=== PATIENT | male | born 1965 | race Caucasian/White ===

== ENCOUNTER 2021-08-16 13:40 | Inpatient (IN) | payer BC, SELFPAY ==
[2021-08-16 13:41] VITALS: BP 134/75; PULSE 86; RESP 16; TEMP 36.9; O2SAT 99; BMI 24.4
--- NOTE | 2021-08-16 14:26 | CT_ITS ---
STUDY: CT BRAIN WITHOUT CONTRAST REASON FOR EXAM: Male, 56 years old. Headaches. Newly diagnosed lung cancer. RADIATION DOSAGE (If Supplied By Facility): CTDIvol = ( 44.99 ) mGy, DLP = ( 812.98 ) mGycm TECHNIQUE: Transaxial CT imaging of the brain was performed without administration of intravenous contrast material. Individualized dose optimization techniques were used for this CT. COMPARISON: No relevant priors. FINDINGS: Normal soft tissue structures. Normal calvarium. Normal size ventricles and extra-axial spaces for the patient''s age. There is a 9 mm x 15 mm focus of decreased attenuation in the deep white matter of the left parietal lobe. Correlation with MRI or enhanced CT scan of the brain is recommended. Normal basal ganglia and thalami. Normal brainstem. Normal cerebellum. There is no intracranial hemorrhage. There are no findings of an acute ischemic infarction. Partial opacification of the right maxillary sinus. CT/Brain/Head without Contrast IMPRESSION: Partial opacification of the right maxillary sinus. Focal area of decreased attenuation in the left parietal lobe as described. Correlation with MRI versus enhanced CT scan of the brain is recommended. Electronically Signed: Joel Hudson MD at 15:16 EST , Service support ,
[2021-08-16] MEDS: 0.9% Normal Saline 1,000 ML 1000 ML IV (14:41)
[2021-08-16] MEDS: DiphenhydrAMINE 50 MG/ML Syringe 25 MG IV (14:43)
[2021-08-16] MEDS: Metoclopramide 10 MG/2 ML Vial IV (14:44)
[2021-08-16 14:49] LABS: Absolute Lymphocyte Count 1.81 X10^3/uL (0.83-4.51); Absolute Neutrophil Count 6.5 X10^3/uL (2.0-7.7); Basophil# 0.05 X10^3/uL; Basophil% 0.5 % (0-1); Eosinophil# 0.12 X10^3/uL; Eosinophils% 1.3 % (0-5); Hematocrit 40.5 % (40-54); Hemoglobin 13.1 g/dL (13.0-16.5); Lymphocyte # 1.81 X10^3/ul (0.83-4.51); Lymphocyte % 19.5 % (19-41); Mean Corp Hgb Conc 32.3 g/dL (32-36); Mean Corpuscular Hgb 29.4 pg (27.0-32.0); Monocyte# 0.74 X10^3/uL; NRBC Flagged by Analyzer 0 % (0-5); Neutrophil % 70.1 % (47-70); Platelet Count 137 K/mm3 (150-450); RBC Distribution Width CV 12.7 % (11.6-14.6); RBC Distribution Width SD 42.2 fl (35.1-43.9); Red Blood Count 4.45 M/mm3 (4.6-6.2); White Blood Count 9.3 K/mm3 (4.4-11.0)
[2021-08-16 14:58] LABS: Anion Gap 6 (5-15); BUN 23 mg/dL (7-18); BUN/Creat Ratio 21.9 RATIO (10-20); Calcium,Total 9.2 mg/dL (8.5-10.1); Chloride 107 mmol/L (98-107); Creatinine, Serum 1.05 mg/dL (0.70-1.30); EST Glomerular Filtration Rate 78 mL/min (>60); Est Glom Filt Rate - Afr Amer 95 mL/min (>60); Estimated Creatinine Clearance 88.28 ml/min; Glucose 102 mg/dL (74-106); Potassium 4.1 mmol/L (3.5-5.1); Sodium Level 140 mmol/L (136-145)
--- NOTE | 2021-08-16 15:16 | EX.ED.VIS.HA ---
HPI History of Present Illness Chief Complaint: Headache Informant: patient Onset/Context/Timing Onset: Today Context: Gradual Timing: Continuous Quality -Headache: Positive for Dull Location: Generalized Worsened by: Nothing Relieved by: Nothing Associated Symptoms/Injury Associated Symptoms: Negative for Fever, Nausea, Vomiting, Sore Throat, Sinus Pressure, Numbness, Tingling, Preceding Aura, Visual Changes, Blurred Vision, Photophobia and Visual Loss Injury - DUVAL: Negative for Direct Trauma Narrative Narrative: Patient presents with a head and that began today. Patient states that is gradually gotten worse. Patient states it is dull. Patient states that it is generalized. Patient states he has a history of lung cancer in his right upper lobe. Patient also states that he has had a stroke which has left him with speech difficulties. Patient states he had a headache prior to the diagnosis of his stroke. Patient is concerned that he may be having another stroke. Patient states nothing makes his headache worse and nothing makes it better. [facility] Medical History (Updated 08/16/21 @ 19:[address] Dale Beasley DO) CVA (cerebral vascular accident) Lung cancer Medical History no medical history no medical history Home Medications oxycodone-acetaminophen [Percocet] 1 tab PO Q4H PRN 08/16/21 [History Last Taken Unknown] rivaroxaban [Xarelto] 20 mg PO DAILY 08/16/21 [History Last Taken Unknown] Allergy/AdvReac Type Severity Reaction Status Date / Time No Known Allergies Allergy Verified 08/16/21 13:45 Surgical History no surgical history no surgical history Social History Smoking Status: Current every day smoker tobacco type: cigarettes ROS ROS ED Constitutional Constitutional ED: Denies chills or fever(s) Eyes Eyes: Denies blurry vision or change in vision ENT ENT ED: Denies rhinorrhea or sore throat Cardiovascular Cardiovascular: Denies chest pain or palpitations Respiratory/Chest Respiratory/Chest: Denies cough or dyspnea Gastrointestinal Gastrointestinal: Denies nausea or vomiting Genitourinary Genitourinary ED: Denies dysuria or hematuria Musculoskeletal Musculoskeletal: Reports neck pain; Denies back pain Integumentary Denies abscess or rash Neurologic Neurologic: Reports headache(s); Denies weakness Allergic/Immunologic Allergic/Immunologic ED: Denies mouth swelling or urticaria EXAM Physical Exam Const Vital Signs: 08/16/21 13:41 08/16/21 17:00 08/16/21 19:25 Temperature 98.4 F Temperature Source Temporal Pulse Rate 86 79 86 Respiratory Rate 16 18 18 Blood Pressure 134/75 H Blood Pressure Mean 94 Pulse Ox 99 97 99 Oxygen Delivery Method Room Air Room Air Room Air Positive well nourished and well developed General Appearance ED: well developed HEENT Reports moist mucous membranes Neck supple and no JVD Resp normal respiratory effort and clear to auscultation bilaterally Cardio regular rate, regular rhythm and no murmurs GI normal to inspection, nondistended, normoactive bowel sounds and non-tender Palpation: soft Extremity normal to inspection General Extremety ED: Negative for edema or tenderness General Extremity: Negative for edema Neuro oriented x3, CN's II-XII intact bilaterally and no sensory deficits noted Sensorium / Orientation: alert Motor Exam: strength 5/5 throughout Psych mental status grossly normal Skin no rashes or lesions noted MDM MDM MDM Narrative Medical decision making narrative: Patient was given IV fluids, Reglan, and Benadryl. CBC and basic metabolic profile were obtained and were within normal limits. CT scan of the brain was obtained. There is an area of decreased attenuation of the left parietal lobe. This was interpreted by the radiologist. Recommended correlation with MRI versus CTA. CTA of the head and neck was obtained. There is high-grade stenosis versus subtotal occlusion of the proximal inferior division of the M2 on the right. This corresponds to an area of loss of calderon-white differentiation and suspected early edema/ischemia involving the right temporal lobe and inferior parietal lobe. He recommended MRI and MRA for further evaluation. This was ordered. This is pending. Patient's NIH score remains at 0 throughout his entire emergency department stay. I discussed the case with the stroke neurologist at [facility] where he normally gets his oncology care. Case was discussed with Dr. Austin the stroke neurologist there. She will accept the patient to be transferred there for acute stroke evaluation. Patient will be transferred to the service of Dr. Issa. Patient understands and is agreeable with the plan. All questions were answered. Lab Data Attestation: I reviewed the patient's lab results. Labs: Laboratory Results - last 24 hr 08/16/21 08/16/21 14:35 14:35 WBC 9.3 RBC 4.45 L Hgb 13.1 Hct 40.5 MCV 91.0 MCH 29.4 MCHC 32.3 RDW Std Deviation 42.2 RDW Coeff of Emir 12.7 Plt Count 137 L MPV 11.0 Immature Gran % (Auto) 0.600 Neut % (Auto) 70.1 H Lymph % (Auto) 19.5 [place] % (Auto) 8.0 Eos % (Auto) 1.3 Baso % (Auto) 0.5 Absolute Neuts (auto) 6.5 Absolute Lymphs (auto) 1.81 Nucleated RBC % 0 Sodium 140 Potassium 4.1 Chloride 107 Carbon Dioxide 27.0 Anion Gap 6 BUN 23 H Creatinine 1.05 Estim Creat Clear Calc 88.28 Est GFR (MDRD) Af Amer 95 Est GFR (MDRD) Non-Af 78 BUN/Creatinine Ratio 21.9 H Glucose 102 Calcium 9.2 Radiography Diagnostic Testing: Clinical Impression(s) from Imaging Studies Brain CT 08/16/21 14:26 IMPRESSION: Partial opacification of the right maxillary sinus. Focal area of decreased attenuation in the left parietal lobe as described. Correlation with MRI versus enhanced CT scan of the brain is recommended. Electronically Signed: Joel Hudson MD at 15:16 EST , Service support , Head/Neck CTA 08/16/21 15:30 IMPRESSION: 1. Focal short subtle high-grade stenosis versus subtotal occlusion of the proximal inferior division of M2 on the RIGHT. This corresponds to an area of loss of calderon-white differentiation and suspected early edema/ischemia involving the RIGHT temporal lobe and inferior parietal lobe. No hemorrhage noted. In the current absence of clinical symptoms corresponding to this area of parenchymal abnormality and vascular abnormality, consider follow-up evaluation with MRI to further evaluate the area of suspected parenchymal ischemia. No current evidence of hemorrhage. 2. No other intracranial evidence of stenosis occlusion or aneurysmal dilatation. Minimal scattered calcifications noted. 3. No evidence of focal stenosis occlusion or luminal irregularity involving the cervical course of the carotid and vertebral vessels to the level of skull base. 4. Extensive mediastinal and a cervical adenopathy, suspicious of metastatic disease. 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 Ramos Newsome. : The above Results were Read Back by Mateusz Liang MD to Dale Beasley DO, and understanding confirmed on 08/16/2021 17:37:52 (ET). Electronically Signed: Mateusz Liang MD at 17:42 EST Tel , Service support , ADDENDUM: 08/16/21 1749 IMPRESSION: 1. Focal short subtle high-grade stenosis versus subtotal occlusion of the proximal inferior division of M2 on the RIGHT. This corresponds to an area of loss of calderon-white differentiation and suspected early edema/ischemia involving the RIGHT temporal lobe and inferior parietal lobe. No hemorrhage noted. In the current absence of clinical symptoms corresponding to this area of parenchymal abnormality and vascular abnormality, consider follow-up evaluation with MRI to further evaluate the area of suspected parenchymal ischemia. No current evidence of hemorrhage. 2. No other intracranial evidence of stenosis occlusion or aneurysmal dilatation. Minimal scattered calcifications noted. 3. No evidence of focal stenosis occlusion or luminal irregularity involving the cervical course of the carotid and vertebral vessels to the level of skull base. 4. Extensive mediastinal and a cervical adenopathy, suspicious of metastatic disease. 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 Ramos Newsome. : The above Results were Read Back by Mateusz Liang MD to Dale Beasley DO, and understanding confirmed on 08/16/2021 17:37:52 (ET). Electronically Signed: Mateusz Liang MD at 17:42 EST Tel , Service support , Discharge Plan Triage Chief Complaint: Headache ED Provider: Dale Beasley Dx/Rx/DC Orders Clinical Impression: Acute stroke due to occlusion of right middle cerebral artery Prescriptions: No Action Xarelto 20 mg Tablet 20 mg PO DAILY RF: 0 oxycodone-acetaminophen [Percocet] 5-325 mg Tablet 1 tab PO Q4H PRN (Reason: Pain) RF: 0 Primary Care Provider: Maciel Clemens Referrals: Maciel Clemens MD [Primary Care Provider] - Disposition Disposition: Acute Care Hospital Discharge Location: [facility]
--- NOTE | 2021-08-16 15:30 | CT_ITS ---
INDICATION: headache EXAMINATION: CT BRAIN WITH CONTRAST TECHNIQUE: Noncontrast axial images were obtained of the brain. Subsequently, routine carotid CT angiogram protocol was performed without and with IV contrast. In addition, images were obtained of the [place]. NASCET criteria using the distal ICAs for comparison were used for evaluation of stenoses. 3D reconstructions were reviewed. A radiation dose optimization technique was used for this scan. IV Contrast dosage and agent: 100 mL Omnipaque 370 Radiation Dose (provided by facility) CTDIvol (21.4 ) mGy, DLP ( 755.60) mGy-cm COMPARISON: CT examination of the head on the same date. FINDINGS: --CT BRAIN: BRAIN PARENCHYMA: 1. The cerebral parenchyma, ventricular system and gyral pattern have normal configuration. There are subtle findings suspicious of loss of calderon-white differentiation involving the RIGHT lobe and inferior parietal lobule on the RIGHT. No hemorrhage noted. Chronic deep white matter changes are noted in the remaining hemispheric parenchyma. 2. Normal appearance the visualized cerebellum, brainstem, basilar and suprasellar cisterns. 3. Moderate to extensive maxillary sinus disease greater on the RIGHT than LEFT, ethmoid disease also noted. --CTA NECK: AORTIC ARCH AND BRANCHES: Normal anatomy, patent. RIGHT CCA: No occlusion, significant stenosis or dissection. RIGHT ICA: No occlusion, significant stenosis or dissection. LEFT CCA: No occlusion, significant stenosis or dissection. LEFT ICA: No occlusion, significant stenosis or dissection. RIGHT VERTEBRAL ARTERY: No occlusion, significant stenosis or dissection. LEFT VERTEBRAL ARTERY: No occlusion, significant stenosis or dissection. NECK SOFT TISSUES: There are bulky lymph nodes noted within the region of the root of the neck, and bulky adenopathy present within the superior mediastinum including a RIGHT paratracheal node measuring approximately 3.1 x 2.6 cm in size. A LEFT scalene node is estimated at approximately 2.2 x 2.1 cm in size. --CTA HEAD: --Anterior circulation: ICAs: Scattered calcifications noted in the cavernous carotid vessels bilaterally without stenosis or occlusion. ACAs: No significant stenosis at the visualized segments. ACOM: Present. MCAs: 1. There is normal appearance of the LEFT MCA including M1-M4 segments without stenosis or occlusion. 2. There is normal patency of the RIGHT M1. There is a short segment drop off of contrast enhancement involving the posterior M2 division (series 2: Image 448, series 603: Image 81). There is contrast extending into distal segments of the RIGHT MCA. --Posterior circulation: PCOMs: Only faint posterior commuting vessels noted bilaterally. science technicians: No significant stenosis at the visualized segments. BASILAR ARTERY: No significant stenosis. VERTEBRAL ARTERIES: No significant stenosis at the intradural/visualized segments. No evidence of intracranial aneurysm or vascular malformation. CT/CTA Head AND Neck W/ Contrast IMPRESSION: 1. Focal short subtle high-grade stenosis versus subtotal occlusion of the proximal inferior division of M2 on the RIGHT. This corresponds to an area of loss of calderon-white differentiation and suspected early edema/ischemia involving the RIGHT temporal lobe and inferior parietal lobe. No hemorrhage noted. In the current absence of clinical symptoms corresponding to this area of parenchymal abnormality and vascular abnormality, consider follow-up evaluation with MRI to further evaluate the area of suspected parenchymal ischemia. No current evidence of hemorrhage. 2. No other intracranial evidence of stenosis occlusion or aneurysmal dilatation. Minimal scattered calcifications noted. 3. No evidence of focal stenosis occlusion or luminal irregularity involving the cervical course of the carotid and vertebral vessels to the level of skull base. 4. Extensive mediastinal and a cervical adenopathy, suspicious of metastatic disease. Preliminary report called to the emergency room at 4:38 PM TEACHER VISUALLY IMPAIRED, a verbal report was communicated to Dr. Ramos Newsome. : The above Results were Read Back by Mateusz Liang MD to Dale Beasley DO, and understanding confirmed on 08/16/2021 17:37:52 (ET). Electronically Signed: Mateusz Liang MD at 17:42 EST Tel , Service support ,
[2021-08-16 17:00] VITALS: PULSE 79; RESP 18; O2SAT 97
--- NOTE | 2021-08-16 17:41 | MRI_ITS ---
STUDY: MRA OF THE HEAD WITHOUT CONTRAST REASON FOR EXAM: Male, 56 years old. Stroke TECHNIQUE: 3-D [id number] (TOF) imaging was performed with MIPs. The study was performed unenhanced. Planar and three-dimensional noncontrast imaging submitted. COMPARISON: None. FINDINGS: Normal bilateral petrous carotid arteries. Normal right cavernous carotid artery with a normal supraclinoid bifurcation. Normal left cavernous carotid artery with a normal supraclinoid bifurcation. Normal right A1 segments of the anterior cerebral artery. Normal left A1 segments of the anterior cerebral artery. Normal intact anterior communicating artery (ACOM). Normal bilateral A2 segments of the anterior cerebral arteries. There is normal caliber of the RIGHT M1. Normal appearance at the bifurcation. There is a focal area of stenosis versus subtotal occlusion of the inferior M2 MCA division (series 2: Image 116) corresponding to the recent CTA findings. The remaining mid to distal M2 through M4 segments show normal flow. Normal left M1 and M2 segments of the middle cerebral arteries, with a normal M1 bifurcation. Normal right posterior communicating artery (PCOM). Normal left posterior communicating artery (PCOM). Normal bilateral vertebral arteries. Normal basilar artery with a normal basilar bifurcation. The visualized bilateral superior cerebellar (SCA) arteries are normal. Normal bilateral P1, P2 and visualized P3 segments of the posterior cerebral arteries. There is no demonstrated aneurysm of the [place]. MRI/MRA Head ONLY without Contrast IMPRESSION: 1. Redemonstration of a focal area of high-grade stenosis versus subtotal occlusion involving the proximal inferior M2 division of the RIGHT MCA. This corresponds to the area of abnormality on recent CTA examination, and is associated with the vascular distribution of the area of acute ischemic changes in the RIGHT temporal and parietal lobes. 2. No other evidence of stenosis, occlusion, or aneurysmal dilatation involving the [place]. Electronically Signed: Mateusz Liang MD at 19:58 EST Tel , Service support ,
--- NOTE | 2021-08-16 17:41 | MRI_ITS ---
STUDY: MRI BRAIN WITH AND WITHOUT CONTRAST REASON FOR EXAM: Male, 56 years old. Stroke TECHNIQUE: Standardized multiplanar fat and water weighted pulse sequences were obtained. IV 15ml dotarem was administered for the contrast portion of the examination. MRI examination brain obtained with standard protocol including multiplanar multiecho pre and postcontrast imaging. COMPARISON: CT and CTA examination of the same date FINDINGS: HEMISPHERES, CEREBELLUM AND BRAINSTEM: 1. The cerebral parenchyma, ventricular system and gyral pattern have normal configuration. Scattered chronic microvascular deep white matter changes are present. 2. Current examination is remarkable for moderate-sized area of fluid restriction and matched 80 cc abnormality along lateral periphery of the RIGHT temporal and inferior parietal lobes, mild extension into the adjacent lateral convexity of the RIGHT occipital lobe. No hemorrhage noted. Findings are consistent with acute ischemia/developing infarct. 3. There is focal area of elevated T2 signal and FLAIR signal along the lateral convexity of the LEFT frontal lobe, involving the LEFT inferior frontal gyrus. There is a mild diffusion hyperintensity, however no associated ADC abnormality, and findings consistent with T2 shine through. 4. There are several areas of abnormal contrast enhancement. There is leptomeningeal or cortical enhancement involving the RIGHT inferior frontal gyrus, particularly opercular region extending into the anterior insula (series 10: Image 14). Additional subtle area of similar leptomeningeal enhancement along the lateral convexity of the RIGHT frontal lobe at the level of the RIGHT inferior frontal sulcus (series 10: Image 16). No associated edema or hemosiderin deposition noted. No vasogenic edema noted.. 5. The cerebellum, brainstem, basilar and suprasellar cisterns have normal appearance. No Chiari malformation. PITUITARY: Infundibulum and pituitary have normal configuration. Midline structures appear normal. CSF SPACES: Appropriate for age. No hydrocephalus. Basal cisterns are patent. VESSELS: 1. There are normal flow voids noted in the great vessels at the skull base ORBITS AND PARANASAL SINUSES: 1. Both globes, extraocular muscles, optic nerves and retrobulbar fat appear unremarkable. 2. Maxillary sinus disease is noted greater on the RIGHT than LEFT, additional bilateral mastoid air cell disease greater on the RIGHT than LEFT. BONY ELEMENTS: No destructive bony process noted however subtle areas of T2 signal hyperintensity within the marrow of the calvarium with associated subtle contrast enhancement noted... SCALP AND SOFT TISSUES: Normal appearance of the soft tissues of the scalp and the visualized face OTHER: None MRI/Brain W/WO Contrast IMPRESSION: 1. Moderate-sized area of fluid restriction/acute ischemic change involving the RIGHT temporal lobe and inferior parietal lobule on the RIGHT with mild extension into the anterior portion of the RIGHT occipital lobe. Pattern is consistent with recent CT findings of a nonhemorrhagic RIGHT temporal parietal infarct. No associated hemosiderin deposition or hemorrhage. No associated contrast enhancement. 2. 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 3. 2 focal areas of leptomeningeal contrast enhancement involving the RIGHT frontal lobe as detailed. No associated mass effect or vasogenic edema. Differential considerations include sequelae of mild leptomeningeal disease including inflammatory changes, however given the patient''s history, early LEFT meningeal metastatic disease is a consideration. No mass effect noted. 4. Subtle areas of T2 signal abnormality within the cranial vault with a subtle contrast enhancement noted. No jenn destructive bony processes identified however. 5. Sinus disease. Electronically Signed: Mateusz Liang MD at 19:48 EST Tel , Service support ,
[2021-08-16] MEDS: LORazepam 2 MG/ML Syringe 1 MG IV (17:59)
[2021-08-16 19:25] VITALS: PULSE 86; RESP 18; O2SAT 99
[2021-08-16 21:49] VITALS: BP 124/64; PULSE 83; RESP 18; O2SAT 99
[2021-08-16 23:21] VITALS: PULSE 72; RESP 18; O2SAT 99
[2021-08-17] VITALS (10 sets, daily range): BP systolic 117–123; BP diastolic 57–94; PULSE 73–100; RESP 16–20; TEMP 36.6–37; O2SAT 93–97; BMI 24.0
--- NOTE | 2021-08-17 07:18 | NURSING ---
CALLED [facility] TRANSFER LINE. NO BEDS, ERS ARE PACKED
--- NOTE | 2021-08-17 08:37 | NURSING ---
PCU OBS [place] CVA
[2021-08-17] MEDS: Rivaroxaban 20 MG Tablet PO (08:39)
--- NOTE | 2021-08-17 08:42 | ECHOD_ITS ---
Reason For Study: TIA/CVA Procedure This was a 2D Doppler, Color Flow transthoracic echocardiogram. The study was technically difficult. Exam performed portable in patient room. Left Ventricle Normal LV size. Left ventricular systolic function is normal. The estimated ejection fraction is 65 %. No evidence for diastolic dysfunction. No regional wall motion abnormalities noted. Right Ventricle Normal RV size. Normal systolic function. Atria The left atrium is mildly enlarged. Normal right atrium. No doppler evidence for ASD. Bubble contrast study negative for right to left interatrial shunt. Mitral Valve There is no mitral annular calcification. Normal mitral valve. Trivial mitral valve insufficiency. Tricuspid Valve Normal tricuspid valve. Mild eccentric tricuspid valve insufficiency. Unable to estimate RV systolic pressure/pulmonary artery pressure due to technically difficult study. Aortic Valve Trisinus/trileaflet aortic valve. Normal aortic valve. Mild (1+) aortic valve insufficiency. Pulmonic Valve Normal pulmonic valve. Trivial eccentric pulmonic valve insufficiency. Great Vessels Mildly dilated aortic root. Pericardium/Pleural No pericardial effusion. Medication Performed a rapid injection of agitated mix of 9 cc saline and 1cc air to assess for atrial septal defect. MMode/2D Measurements & Calculations LVIDd: 5.4 cm IVSd: 0.96 cm LVOT diam: 2.3 cm LVIDs: 3.6 cm LVPWd: 0.94 cm RVDd: 3.4 cm FS: 32.5 % LVOT area: 4.1 cm2 Ao root diam: 4.2 cm LAV(MOD-bp): 56.8 ml LA A4 area: 19.1 cm2 LAV(MOD-bp) Indexed: 27.9 ml/m2 LAV(MOD-sp2): 57.8 ml LAV(MOD-sp4): 52.7 ml LA dimension(2D): 4.1 cm RA A4 area: 13.8 cm2 Time Measurements MV dec time: 0.18 sec Doppler Measurements & Calculations MV E max gilbert: 86.5 cm/sec Lat Peak E' Gilbert: 12.9 cm/sec Med Peak E' Gilbert: 14.5 cm/sec MV A max gilbert: 54.3 cm/sec E/E' lat: 6.7 E/E' med: 5.9 MV E/A: 1.6 Ao V2 max: 155.2 cm/sec AI max gilbert: 376.5 cm/sec LV V1 max: 133.8 cm/sec Ao max P.6 mmHg AI max P.8 mmHg LV V1 max P.2 mmHg Ao V2 mean: 98.5 cm/sec AI dec slope: 405.6 cm/sec2 LV V1 mean P.1 mmHg Ao mean P.4 mmHg AI P1/2t: 271.9 msec LV V1 mean: 82.3 cm/sec Ao V2 VTI: 30.8 cm LV V1 VTI: 27.1 cm TONI(I,D): 3.6 cm2 TONI(V,D): 3.6 cm2 MR max gilbert: 494.8 cm/sec SV(LVOT): 111.8 ml PA V2 max: 71.6 cm/sec MR max P.9 mmHg ECHO/Echo Complete Interpretation Summary The study was technically difficult. Left ventricular systolic function is normal. The estimated ejection fraction is 65 %. The left atrium is mildly enlarged. Trivial mitral valve insufficiency. Mild eccentric tricuspid valve insufficiency. Mild (1+) aortic valve insufficiency. Trivial eccentric pulmonic valve insufficiency. Mildly dilated aortic root. Unable to estimate RV systolic pressure/pulmonary artery pressure due to techni rosa difficult study. No evidence for diastolic dysfunction. Bubble contrast study negative for right to left interatrial shunt. Ordering Physician: Jose Dewitt Referring Physician: Maciel Clemens Performed By: Barbra Grissom, WHITNEY, RVT
--- NOTE | 2021-08-17 08:45 | ED.RN ---
PT NOTIFIED HE WILL BE ADMITTED TO [facility] WHILE WAITING FOR A BED AT [facility]. PT C/O HEADACHE. DR BLAKE NOTIFIED. MEDICATIONS TO BE ORDERED
[2021-08-17] MEDS: DiphenhydrAMINE 50 MG/ML Syringe 25 MG IV (08:56)
[2021-08-17] MEDS: LORazepam 2 MG/ML Syringe 1 MG IV (08:57)
[2021-08-17] MEDS: Metoclopramide 10 MG/2 ML Vial IV (09:00)
--- NOTE | 2021-08-17 09:47 | TELEMED_ITS ---
[facility] Telemed has confirmed receipt of a request for visit. This document confirms receipt of the order initiating the consult. To find the results of the consultation, please view the patient's reports for the scanned Telemed Consult.
--- NOTE | 2021-08-17 09:48 | NURSING ---
Echo in progress
--- NOTE | 2021-08-17 11:05 | PCM.HP.STD ---
Documented by User: JA Reyes 08/17/21 11:17 HPI - General General Date of Admission: 08/17/21 Date of Service: 08/17/21 Chief Complaint: Headache HPI Narrative ART VEGA, is a 56 M who presents with complaints of a headache that began yesterday and has gradually gotten worse over the day. Patient qualifies as generalized and dull. Patient reports a medical history of right upper lobe lung cancer and a history of stroke. Patient currently on Xarelto only. Patient states that prior to his past stroke he had a headache as well. [facility] Medical History CVA (cerebral vascular accident) Lung cancer Medical History no medical history Home Medications oxycodone-acetaminophen [Percocet] 1 tab PO Q4H PRN 08/16/21 [History Last Taken Unknown] rivaroxaban [Xarelto] 20 mg PO DAILY 08/16/21 [History Last Taken Unknown] Allergy/AdvReac Type Severity Reaction Status Date / Time No Known Allergies Allergy Verified 08/16/21 13:45 Family History no significant family his no significant family history Surgical History no surgical history no surgical history Social History Smoking Status: Current every day smoker tobacco type: cigarettes ROS Constitutional Constitutional: Denies anorexia, chills, fatigue, fever(s), malaise or weakness Eyes Eyes: Denies blurry vision or change in vision ENT HEENT: Reports headache(s); Denies abnormal hearing Cardiovascular Cardiovascular: Denies chest pain, claudication, orthopnea, palpitations or syncope Respiratory/Chest Respiratory/Chest: Denies cough, shortness of breath at rest, shortness of breath with exertion or wheezing Gastrointestinal Gastrointestinal: Denies abdominal pain, constipation, diarrhea, nausea or vomiting Genitourinary Genitourinary: Denies dysuria Musculoskeletal Musculoskeletal: Denies back pain, extremity pain, joint pain, joint stiffness or joint swelling Integumentary Integumentary: Denies dry skin or jaundice Neurologic Neurologic: Reports abnormal speech and headache(s); Denies abnormal gait, confusion, dizziness or focal weakness Psychiatric Psychiatric: Denies anxiety or depression Endocrine Endocrinology: Denies change in body appearance Hematologic/Lymphatic Hematologic/Lymphatic: Denies anemia, easy bleeding or easy bruising Vital Signs Vital Signs Vital Signs: 08/16/21 13:41 08/16/21 17:00 08/16/21 19:25 Temperature 98.4 F Temperature Source Temporal Pulse Rate 86 79 86 Respiratory Rate 16 18 18 Blood Pressure 134/75 H Blood Pressure Mean 94 Blood Pressure Source Blood Pressure Position Blood Pressure Location Pulse Ox 99 97 99 Oxygen Delivery Method Room Air Room Air Room Air 08/16/21 21:49 08/16/21 23:21 08/17/21 01:12 Temperature Temperature Source Pulse Rate 83 72 Respiratory Rate 18 18 18 Blood Pressure 124/64 H Blood Pressure Mean 84 Blood Pressure Source Blood Pressure Position Blood Pressure Location Pulse Ox 99 99 Oxygen Delivery Method Room Air Room Air 08/17/21 03:37 08/17/21 06:05 08/17/21 08:44 Temperature 97.8 F Temperature Source Oral Pulse Rate 100 Respiratory Rate 18 16 20 H Blood Pressure 123/80 H Blood Pressure Mean 94 Blood Pressure Source Blood Pressure Position Blood Pressure Location Pulse Ox 96 97 Oxygen Delivery Method Room Air Room Air 08/17/21 09:40 Temperature 98.6 F Temperature Source Temporal Pulse Rate 73 Respiratory Rate 16 Blood Pressure 119/60 Blood Pressure Mean 79 Blood Pressure Source Monitor Blood Pressure Position Semi-Fowlers Blood Pressure Location Left Arm Pulse Ox 93 Oxygen Delivery Method Room Air Weight Weight: 177 lb 11.081 oz Body Mass Index (BMI) 24.0 Physical Exam Const alert, oriented x3 and no apparent distress General Appearance: cooperative HEENT normocephalic and head/scalp atraumatic Eyes conjunctivae normal and no scleral icterus Neck supple and no JVD General: trachea midline Resp normal respiratory effort, normal air movement and clear to auscultation bilaterally Cardio regular rate, regular rhythm, S1 normal heart sound, S2 normal heart sound and peripheral pulses 2+ throughout GI normal to inspection, nondistended, normoactive bowel sounds, soft to palpation and non-tender Extremity normal capillary refill and no clubbing, cyanosis or edema General Extremity: no tenderness to palpation of joints or extremities Skin General Skin Exam: no breakdown and turgor normal Lesions: no lesions Rashes: no rashes Neuro moves all extremities, no focal motor deficits and no sensory deficits noted Speech: speech normal and speech abnormal Details: Positive for slurred (From previous stroke) Gait (Neuro): normal gait Motor Exam: Negative for general weakness Psych thought process normal, cooperative and affect normal Appearance: appropriate Results Lab / Micro Data Result Diagrams: 08/16/21 14:35 08/16/21 14:35 Labs: Laboratory Results - last 24 hr 08/16/21 14:35: WBC 9.3, RBC 4.45 L, Hgb 13.1, Hct 40.5, MCV 91.0, MCH 29.4, MCHC 32.3, RDW Std Deviation 42.2, RDW Coeff of Emir 12.7, Plt Count 137 L, MPV 11.0, Immature Gran % (Auto) 0.600, Neut % (Auto) 70.1 H, Lymph % (Auto) 19.5, [place] % (Auto) 8.0, Eos % (Auto) 1.3, Baso % (Auto) 0.5, Absolute Neuts (auto) 6.5, Absolute Lymphs (auto) 1.81, Nucleated RBC % 0 08/16/21 14:35: Sodium 140, Potassium 4.1, Chloride 107, Carbon Dioxide 27.0, Anion Gap 6, BUN 23 H, Creatinine 1.05, Estim Creat Clear Calc 88.28, Est GFR (MDRD) Af Amer 95, Est GFR (MDRD) Non-Af 78, BUN/Creatinine Ratio 21.9 H, Glucose 102, Calcium 9.2 Micro: Microbiology 08/16/21 19:05 Nasal Secretion SARS-CoV-2 Antigen (Rapid) - Final Radiology Impression Brain CT 08/16/21 14:26 IMPRESSION: Partial opacification of the right maxillary sinus. Focal area of decreased attenuation in the left parietal lobe as described. Correlation with MRI versus enhanced CT scan of the brain is recommended. Electronically Signed: Joel Hudson MD at 15:16 EST , Service support , Head/Neck CTA 08/16/21 15:30 IMPRESSION: 1. Focal short subtle high-grade stenosis versus subtotal occlusion of the proximal inferior division of M2 on the RIGHT. This corresponds to an area of loss of calderon-white differentiation and suspected early edema/ischemia involving the RIGHT temporal lobe and inferior parietal lobe. No hemorrhage noted. In the current absence of clinical symptoms corresponding to this area of parenchymal abnormality and vascular abnormality, consider follow-up evaluation with MRI to further evaluate the area of suspected parenchymal ischemia. No current evidence of hemorrhage. 2. No other intracranial evidence of stenosis occlusion or aneurysmal dilatation. Minimal scattered calcifications noted. 3. No evidence of focal stenosis occlusion or luminal irregularity involving the cervical course of the carotid and vertebral vessels to the level of skull base. 4. Extensive mediastinal and a cervical adenopathy, suspicious of metastatic disease. Preliminary report called to the emergency room at 4:38 PM CLINIC ADMINISTRATOR, a verbal report was communicated to Dr. Ramos Newsome. : The above Results were Read Back by Mateusz Liang MD to Dale Beasley DO, and understanding confirmed on 08/16/2021 17:37:52 (ET). Electronically Signed: Mateusz Liang MD at 17:42 EST Tel , Service support , ADDENDUM: 08/16/21 1749 IMPRESSION: 1. Focal short subtle high-grade stenosis versus subtotal occlusion of the proximal inferior division of M2 on the RIGHT. This corresponds to an area of loss of calderon-white differentiation and suspected early edema/ischemia involving the RIGHT temporal lobe and inferior parietal lobe. No hemorrhage noted. In the current absence of clinical symptoms corresponding to this area of parenchymal abnormality and vascular abnormality, consider follow-up evaluation with MRI to further evaluate the area of suspected parenchymal ischemia. No current evidence of hemorrhage. 2. No other intracranial evidence of stenosis occlusion or aneurysmal dilatation. Minimal scattered calcifications noted. 3. No evidence of focal stenosis occlusion or luminal irregularity involving the cervical course of the carotid and vertebral vessels to the level of skull base. 4. Extensive mediastinal and a cervical adenopathy, suspicious of metastatic disease. Preliminary report called to the emergency room at 4:38 PM CLINIC ADMINISTRATOR, a verbal report was communicated to Dr. Ramos Newsome. : The above Results were Read Back by Mateusz Liang MD to Dale Beasley DO, and understanding confirmed on 08/16/2021 17:37:52 (ET). Electronically Signed: Mateusz Liang MD at 17:42 EST Tel , Service support , Brain MRI 08/16/21 17:41 IMPRESSION: 1. Moderate-sized area of fluid restriction/acute ischemic change involving the RIGHT temporal lobe and inferior parietal lobule on the RIGHT with mild extension into the anterior portion of the RIGHT occipital lobe. Pattern is consistent with recent CT findings of a nonhemorrhagic RIGHT temporal parietal infarct. No associated hemosiderin deposition or hemorrhage. No associated contrast enhancement. 2. 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 3. 2 focal areas of leptomeningeal contrast enhancement involving the RIGHT frontal lobe as detailed. No associated mass effect or vasogenic edema. Differential considerations include sequelae of mild leptomeningeal disease including inflammatory changes, however given the patient''s history, early LEFT meningeal metastatic disease is a consideration. No mass effect noted. 4. Subtle areas of T2 signal abnormality within the cranial vault with a subtle contrast enhancement noted. No jenn destructive bony processes identified however. 5. Sinus disease. Electronically Signed: Mateusz Liang MD at 19:48 EST Tel , Service support , Head MRA 08/16/21 17:41 IMPRESSION: 1. Redemonstration of a focal area of high-grade stenosis versus subtotal occlusion involving the proximal inferior M2 division of the RIGHT MCA. This corresponds to the area of abnormality on recent CTA examination, and is associated with the vascular distribution of the area of acute ischemic changes in the RIGHT temporal and parietal lobes. 2. No other evidence of stenosis, occlusion, or aneurysmal dilatation involving the kake of [place]. Electronically Signed: Mateusz Liang MD at 19:58 EST Tel , Service support , Assessment & Plan Assessment/Plan (1) Acute stroke due to occlusion of right middle cerebral artery: PLAN: 1. Acute right temporal parietal infarct -Admit to PCU -Consult [facility] neurology -Echocardiogram ordered -Patient initiated on atorvastatin and aspirin -Continue Xarelto -NIH stroke scale monitoring per protocol -Lipid panel pending -ST, PT, OT consulted 2. Tobacco use - Inpatient smoking cessation ordered DVT prophylaxis-chronically anticoagulated with Xarelto This patient was seen by JA Reyes under the supervision of Dr. Dewitt 13 minutes spent in clinical coordination of patient's plan of care. Documented by User: Dr. Jose Dewitt MD 08/17/21 18:20 HPI - General General Date of Admission: 08/17/21 [facility] Medical History CVA (cerebral vascular accident) Lung cancer Medical History no medical history Home Medications oxycodone-acetaminophen [Percocet] 1 tab PO Q4H PRN 08/16/21 [History Last Taken Unknown] rivaroxaban [Xarelto] 20 mg PO DAILY 08/16/21 [History Last Taken Unknown] Allergy/AdvReac Type Severity Reaction Status Date / Time No Known Allergies Allergy Verified 08/16/21 13:45 Family History no significant family his Surgical History no surgical history Social History Smoking Status: Current every day smoker tobacco type: cigarettes Results Lab / Micro Data Result Diagrams: 08/16/21 14:35 08/16/21 14:35 Charges/Coding Addendum Addendum: Dr. Dewitt: I personally reviewed the chart and examined the patient, and agree with the above findings. 56-year-old male presents to the hospital with strokelike symptoms. Slurred speech as well as loss of fluency and a headache. He was in the ER overnight pending transfer to the [facility] however this morning when the [facility] was called and did not have an estimation for a bed therefore he was admitted here. He is outside the tPA window due to both recent CVA as well as being on full dose anticoagulation. NIH per [facility] neurology was 4. He had had a stroke in June, which did present very similar to this with loss of fluency and trouble with his speech, and at that time he was found to have a spiculated lesion in his chest that was biopsied at [facility] and was found to be an adenocarcinoma. He did have a PET scan that shows uptake in his mediastinal and I believe supraclavicular lymph nodes. However they have not been able to follow-up with the oncologist at this time to get a diagnosis and staging. Repeat MRI shows a possible new stroke in the right temporal region. He does look like he has old MCA strokes in his right and left distribution. He states that he has an allergy to a statin as he had been trialed on it previously and had significant crippling leg pain therefore he refuses any statin. He was started on the Xarelto due to lower extremity DVTs however if he is having strokes in the setting of cancer then this may demonstrate a lack of effectiveness of the Xarelto therefore we will discontinue this and start him on therapeutic Lovenox. We are attempting to get him transferred to the [facility], in the meantime we are awaiting records from that institution to see what else we can do, does appear that they may have had a SILVIA done there during his previous admission therefore would not need to repeat that now. Our echo demonstrates normal valves it does appear that they got good visualization. If he has some improvement in his symptomatology tomorrow he does have an outpatient physician appointment on 08/19/2021 and he can follow-up with his oncologist as well as the [facility] neurologist later in the week if possible. Clinical time spent evaluating the patient as well as obtaining history and chart review and discussing the case with neurology: 60 minutes General: Alert, Oriented x3, Cooperative, No apparent distress HEENT: Atraumatic, PERRLA, EOMI, Normocephalic Oral: Moist Mucosa Neck: Supple, No JVD Lungs: Clear to auscultation, Normal air movement, No rhonchi, No wheeze, No rales Cardiovascular: Regular rate, Regular Rhythm, Normal S1, Normal S2, No murmurs Abdomen: Soft, Non Tender, Non-Distended, No Hepato-splenomegaly Extremities: No edema, Capillary Refill Less than 3 Seconds Skin: No rashes, No breakdown Musculoskeletal: No Tenderness to Palpation of Joints or Extremities Neurological: Mildly slurred speech and word finding issues, NIH of 4, Motor Exam 5/5 strength throughout, Sensory exam intact to light touch and pain Psych/Mental Status: Flat affect, Appropriate Visit Charges Inpatient E&M: 96227 Init Hosp L3
[2021-08-17 11:19] LABS: Cholesterol 143 mg/dL (200); High Density Lipoprotein 30 mg/dL; Triglycerides 170 mg/dL; Very Low Density Lipoprotein 34 mg/dL (5-40)
[2021-08-17] MEDS: LORazepam 1 MG Tablet PO (20:26)
[2021-08-17] MEDS: Enoxaparin 80 MG/0.8 ML Syringe SC (20:27)
[2021-08-18 00:20] VITALS: BP 136/67; PULSE 76; RESP 18; TEMP 37; O2SAT 96
[2021-08-18] MEDS: Zolpidem Tartrate 5 MG Tablet PO (00:22)
[2021-08-18 04:30] VITALS: BP 107/51; PULSE 71; RESP 18; TEMP 36.6; O2SAT 94
[2021-08-18 04:50] VITALS: BMI 24.0
--- NOTE | 2021-08-18 07:12 | DS.PCM_ITS ---
Providers Date of Admission: 08/17/21 Primary Care Physician: Dr. Maciel Clemens MD Reason For Visit: STROKE Diagnosis Discharge Diagnosis (1) Acute stroke due to occlusion of right middle cerebral artery: Status: Acute Code(s): I63.511 - Cerebral infarction due to unspecified occlusion or stenosis of right middle cerebral artery Medications at Discharge Home Medications oxycodone-acetaminophen [Percocet] 1 tab PO Q4H PRN 08/16/21 rivaroxaban [Xarelto] 20 mg PO DAILY 08/16/21 Hospital Course Operations None Procedures 2-D Echocardiogram Summary of Care Provided Minutes Spent on Discharge: 35 Hospital Course: Per HPI:ART VEGA, is a 56 M who presents with complaints of a headache that began yesterday and has gradually gotten worse over the day. Patient qualifies as generalized and dull. Patient reports a medical history of right upper lobe lung cancer and a history of stroke. Patient currently on Xarelto only. Patient states that prior to his past stroke he had a headache as well. Hospital Course: 56-year-old male presents to the hospital with strokelike symptoms. Slurred speech as well as loss of fluency and a headache. He was in the ER overnight pending transfer to the [facility] however this morning when the [facility] was called and did not have an estimation for a bed therefore he was admitted here. He is outside the tPA window due to both recent CVA as well as being on full dose anticoagulation. NIH per [facility] neurology was 4. He had had a stroke in June, which did present very similar to this with loss of fluency and trouble with his speech, and at that time he was found to have a spiculated lesion in his chest that was biopsied at [facility] and was found to be an adenocarcinoma. He did have a PET scan that shows uptake in his mediastinal and I believe supraclavicular lymph nodes. However they have not been able to follow-up with the oncologist at this time to get a diagnosis and staging. Repeat MRI shows a possible new stroke in the right temporal region with occlusion of the M2 vessel, there is some question as to whether or not this is a new or old finding however we do not have records from the [facility] at this time. He does look like he has old MCA strokes in his right and left distribution. He states that he has an allergy to a statin as he had been trialed on it previously and had significant crippling leg pain therefore he refuses any statin. He was started on the Xarelto due to lower extremity DVTs however if he is having strokes in the setting of cancer then this may demonstrate a lack of effectiveness of the Xarelto therefore we will discontinue this and start him on therapeutic Lovenox. Our echo demonstrates normal valves it does appear that they got good visualization. A bed did become available and he was discharged on 08/18/2021 to the [facility] prior to my evaluation. Medical Records Data Medical Nutrition Assessment Dietitian: Malnutrition Criteria Met Start: 08/17/21 16:28 Freq: Status: Active Protocol: Document 08/17/21 16:51 RMA (Rec: 08/17/21 16:51 RMA [id number]) Nutrition Malnutrition Evidence of Malnutrition Exists Yes Malnutrition (severe): Acute Illness/Injury Evidenced By Suboptimal Energy Intake ( Severe),Weight Loss (Severe), Physical Changes (Moderate) Clinical Problem Acute Disease or Injury Related Malnutrition Etiology Severe protein/calorie malnutrition in the context of acute illness related to increased energy needs/ catabolic disease and inability to consume adequate PO at meals Signs/Symptoms as evidenced by ~11% wt loss x past 6 weeks, +NFPA with moderate temporal/orbital wasting and PO meeting less than 50% estimated nutrition needs x past 1-2 months. Status Active Problem Recommendation Dietitian Recommendations/Changes Continue regular diet as ordered. Will add 240ml chocolate ensure enlive TID w/ meals for extra 1050 kcal and 60 gm pro per day. Weight / BMI Weight Weight: 177 lb 11.081 oz Body Mass Index (BMI) 24.0 ABG / Lab / Microbiology Data Result Diagrams: 08/16/21 14:35 08/16/21 14:35 Laboratory: Laboratory Results - last 24 hr 08/17/21 10:48: Triglycerides 170, Cholesterol 143, LDL Cholesterol 79, VLDL Cholesterol 34, HDL Cholesterol 30 L Microbiology: Microbiology 08/16/21 19:05 Nasal Secretion SARS-CoV-2 Antigen (Rapid) - Final Radiography Diagnostic Testing: Radiology Impression Echocardiogram 08/17/21 08:42 Interpretation Summary The study was technically difficult. Left ventricular systolic function is normal. The estimated ejection fraction is 65 %. The left atrium is mildly enlarged. Trivial mitral valve insufficiency. Mild eccentric tricuspid valve insufficiency. Mild (1+) aortic valve insufficiency. Trivial eccentric pulmonic valve insufficiency. Mildly dilated aortic root. Unable to estimate RV systolic pressure/pulmonary artery pressure due to technically difficult study. No evidence for diastolic dysfunction. Bubble contrast study negative for right to left interatrial shunt. Ordering Physician: Jose Dewitt Referring Physician: Maciel Clemens Performed By: Barbra Grissom RDCS, RVT Meaningful Use Info Meaningful Use Diagnoses (Choose all that apply): None applicable Discharge Plan Admission Admit Date/Time: 08/17/21 08:32 Attending Provider: Jose Dewitt Primary Care Provider: Maciel Clemens Discharge Orders/Prescriptions Prescriptions: No Action Xarelto 20 mg Tablet 20 mg PO DAILY RF: 0 oxycodone-acetaminophen [Percocet] 5-325 mg Tablet 1 tab PO Q4H PRN (Reason: Pain) RF: 0 Referrals / Follow Up: Maciel Clemens MD [Primary Care Provider] - Disposition Discharge Orders: Discharge Patient (Routine); Ordered 08/18/21 Ordered By: Dr. Jose Dewitt
== END 2021-08-18 06:45 | disposition short-term general hospital (02) | DRG 65 ==
LOC: ED 19:16 → PCU 08-17 14:56
PROVIDERS: Admitting Provider Family Medicine; Emergency Provider Emergency Medicine; PCP Family Medicine; Visit Provider Family Medicine
DX: I63.511 Cerebral infarction due to unspecified occlusion or stenosis of right middle cerebral artery (principal); C34.11 Malignant neoplasm of upper lobe, right bronchus or lung; F17.210 Nicotine dependence, cigarettes, uncomplicated; I69.328 Other speech and language deficits following cerebral infarction; R29.704 NIHSS score 4; Z79.01 Long term (current) use of anticoagulants; Z20.822 Contact with and (suspected) exposure to COVID-19; Z79.899 Other long term (current) drug therapy; R47.81 Slurred speech; R47.1 Dysarthria and anarthria
CPT/HCPCS: 70450; 70496; 70498; 70544; 70553; 80048; 80061; 85025; 87426; 93306; 94762; 96361; 96374; 96375; 97161; 97166; 97802; 99285; 99406; A9575; J7030; Q9967; A4216